=== PATIENT | female | born 1975 | race Caucasian/White ===

== ENCOUNTER → 2017-09-28 | Outpatient (CLI) | payer BC | LOC: MHCPAIN 10:23 | DX: G89.29 Other chronic pain (principal); M47.817 Spondylosis without myelopathy or radiculopathy, lumbosacral region; M53.3 Sacrococcygeal disorders, not elsewhere classified; M41.9 Scoliosis, unspecified | CPT/HCPCS: G0463 ==

== ENCOUNTER 2021-12-11 12:15 | Observation (INO) | payer BC, OTHER ==
[~2021-12-11] VITALS: Ht 157.5 cm; Wt 64.5 kg
[2021-12-11] VITALS (9 sets, daily range): BP systolic 105–122; BP diastolic 62–94; PULSE 60–71; TEMP 97.8–98.7
[2021-12-11] MEDS ORDERED: CIPRO 500MG TA500 MG PO (13:28)
[2021-12-11] MEDS ORDERED: ZOFRAN 4MG T4 MG/TAB PO (13:29)
[2021-12-11] MEDS ORDERED: NORCO 325 MG-51 TAB PO (13:29)
[2021-12-11] MEDS ORDERED: ZOLOFT 50MG50 MG PO (13:30)
[2021-12-11] MEDS ORDERED: TOPAMAX 25MG25 M1 PO (13:30)
--- NOTE | 2021-12-11 13:30 | NUR ---
PATIENT ADMITED INTO ROOM 331 WITH KIDNEY STONE. PATIENT C/O SEVERE PAIN IN RIGHT FLANK. GAVE PRN MORPHINE IV AFTER STARTING 20 GAUGE IV, ON FIRST ATTEMPT, INTO LEFT WRIST. NS INFUSING VIA PUMP. NPO. CONSENT SIGNED AND ON CHART. PATIENT SCHEDULED FOR SURGERY LATER TONIGHT. AT BEDSIDE. HEAD TO TOE ASSESSMENT COMPLETE. ORIENTED TO ROOM. CALL LIGHT IN REACH.
[2021-12-11] MEDS ORDERED: IMITREX50 MG PO (13:31)
--- NOTE | 2021-12-11 17:35 | NUR ---
PATIENT GOING DOWN TO OR VIA BED. CONSENT ON CHART. IV FLUIDS TO GRAVITY. AT BEDSIDE. PATIENT OFF FLOOR.
--- NOTE | 2021-12-11 19:55 | NUR ---
RETURNS FROM SURGERY VIA BED. ASSISTED TO BATHROOM, VOIDS AND BACK TO BED. HAS STENT STRINGS TAPED TO RT INNER THIGH. IVF TO LEFT FOREARM, NO REDNESS OR SWELLING.
--- NOTE | 2021-12-11 20:11 | NUR ---
SPOKE WITH DR ROBERT REGARDING REMOVING STENTS AT HOME, EITHER THIS TUESDAY OR TUESDAY.
--- NOTE | 2021-12-11 20:20 | NUR ---
MEDICATED WITH NORCO 5/325MG 1 PO FOR LOWER ABD PAIN. TAKING APPLESAUCE AND WATER WITHOUT PROBLEM. HAS VOIDED X1.
--- NOTE | 2021-12-11 21:30 | NUR ---
PT UP TO VOID AGAIN, REPORTS PAIN LESS AFTER NORCO. REMOVED SL FROM LEFT WRIST, ANGIOCATH INTACT. PT READY TO GO HOME.
--- NOTE | 2021-12-11 21:39 | NUR ---
DISCHARGED VIA W/C TO PRIVATE CAR. PERSONAL BELONGINGS AND COPY OF DISCHARGE INSTRUCTIONS SENT WITH PT.
== END 2021-12-11 21:39 | disposition home or self-care (01) ==
LOC: SURG 12:15
PROVIDERS: ADMIT Urology
DX: N20.1 Calculus of ureter (principal); G43.909 Migraine, unspecified, not intractable, without status migrainosus; Z79.899 Other long term (current) drug therapy; F32.A Depression, unspecified
CPT/HCPCS: C1769; C2617; G0378; J0690; J1100; J2270; J2405; J2704; J3010; J7030; Q9967